=== PATIENT | female | born 1925 | race Caucasian/White ===

== ENCOUNTER 2016-05-29 15:22 | Inpatient (IN) | payer MEDICARE, OTHER ==
[~2016-05-29] VITALS: Ht 167.6 cm; Wt 65.3 kg
[~2016-05-29 15:22] MED LIST: ACET325T45 PO; CARV3.1260 PO; MAGN400O4 PO; OXYC5CAP17 PO; PANT40TA4 PO; RIVA15TA PO; SIME80TA PO; UDROBAC PO
[2016-05-29] MEDS ORDERED: ONDANSETRON 4 MG INJ IV STA (15:40)
[2016-05-29 16:02] LABS: HEMATOCRIT 33.4 % (37.0-47.0); HEMOGLOBIN 10.6 g/dl (12.0-16.0); MEAN CORPUSCULAR HEMOGLOBIN 20.9 pg (29.0-33.0); MEAN CORPUSCULAR HGB CONC 31.9 g/dl (32.0-37.0); MEAN CORPUSCULAR VOLUME 65.6 fl (82.0-101.0); MEAN PLATELET VOLUME 8.9 fl (7.4-10.4); PLATELET COUNT 347 10^3/UL (140-440); RED BLOOD COUNT 5.09 10^6/ul (4.20-5.40); RED CELL DISTRIBUTION WIDTH 18.9 % (11.5-14.5); UNCORRECTED WBC 11.4 10^3/ul (4.8-10.8); WHITE BLOOD COUNT 11.4 10^3/ul (4.8-10.8)
[2016-05-29 16:08] LABS: INR 1.17; PT RATIO 1.2
[2016-05-29 16:09] LABS: PARTIAL THROMBOPLASTIN TIME 30.7 Sec (25.0-35.0)
[2016-05-29 16:12] LABS: ALBUMIN 3.9 g/dl (3.3-4.9); CHLORIDE 91 mmol/L (97-110); SODIUM 124 mmol/L (135-144)
[2016-05-29 16:15] LABS: ALBUMIN/GLOBULIN RATIO 1.14; ALKALINE PHOSPHATASE 90 IU/L (42-121); ANION GAP 18 (8-16); ASPARTATE AMINO TRANSFERASE 26 IU/L (15-46); BILIRUBIN,INDIRECT 0.8 mg/dl (0-1.1); BILIRUBIN,TOTAL 0.8 mg/dl (0.2-1.3); BLOOD UREA NITROGEN 49 mg/dl (7-20); CARBON DIOXIDE 21 mmol/L (21-31); GLUCOSE 96 mg/dl (70-220); TOTAL PROTEIN 7.3 g/dl (6.1-8.1)
[2016-05-29 16:16] LABS: ALANINE AMINOTRANSFERASE 22 IU/L (13-69); CALCIUM 9.5 mg/dl (8.4-10.2)
--- NOTE | 2016-05-29 16:16 | RADRPT ---
PROCEDURE: XR Chest. CLINICAL INDICATION: Chest pain TECHNIQUE: Single frontal chest x-ray. COMPARISON: 04/03/2016 FINDINGS: There is cardiomegaly with central pulmonary congestion. There is mild prominence of the interstitia l markings. There are no pleural effusions or pneumothoraces. There is aortic atherosclerosis. The osseous structures are intact. IMPRESSION: 1. Cardiomegaly with mild pulmonary congestion. The appearance has improved compared to 04/03/2016 . 2. Aortic atherosclerosis. RPTAT: BB .Rob Funez MD, MD Date Time Electronically viewed and signed by .Rob Funez MD, on 05/29/2016 16:15 .O/
[2016-05-29 16:21] LABS: CONDITION 1; LH ANALYZER COMMENTS 1; SUSPECT 1
[2016-05-29 16:23] LABS: B-TYPE NATRIURETIC PEPTIDE 5860 PG/ML (0-450)
[2016-05-29 16:24] LABS: POTASSIUM 6.4 mmol/L (3.5-5.1)
[2016-05-29 16:25] LABS: ADD UMIC YES; URINE BILIRUBIN (Dip) NEGATIVE (NEGATIVE); URINE BLOOD (Dip) NEGATIVE (NEGATIVE); URINE COLOR LT. YELLOW (YELLOW); URINE GLUCOSE (Dip) NEGATIVE (NEGATIVE); URINE KETONES (Dip) NEGATIVE (NEGATIVE); URINE LEUKOCYTE ESTERASE (Dip) 2+ (NEGATIVE); URINE NITRITE (Dip) POSITIVE (NEGATIVE); URINE TOTAL PROTEIN (Dip) NEGATIVE (NEGATIVE); URINE UROBILINOGEN (Dip) 0.2 E.U./dL (0.1-1.0)
[2016-05-29 16:27] LABS: TROPONIN-I < 0.010 ng/ml (0.00-0.12)
[2016-05-29] MEDS ORDERED: DEXTROSE 50% 50 ML SYRINGE IV STA (16:27)
[2016-05-29] MEDS ORDERED: NA POLYST SULFON 15 GM/60 ML BTL PO ONE (16:30)
[2016-05-29] MEDS ORDERED: INSULIN REGULAR, HUMAN 100 UNIT/1 ML 3ML VIAL IV ONE (16:30)
[2016-05-29] MEDS ORDERED: NA BICARBONATE 8.4% 50 ML SYG IV ONE (16:30)
[2016-05-29] MEDS ORDERED: CALCIUM GLUCONATE 10% 1 GM in SOD CHLORIDE 0.9% 100 ML IVPB ONE (16:30)
[2016-05-29] MEDS ORDERED: CA GLUCONATE (GM) 10% 10ML INJ IV STA (16:34)
[2016-05-29 16:38] LABS: RENAL EPITHELIAL CELLS,URINE MODERATE; URINE RBCS NONE SEEN /HPF (0)
[2016-05-29 16:39] LABS: BACTERIA,URINE MANY
[2016-05-29] MEDS ORDERED: SOD CHLORIDE 0.9% 1,000 ML IV SCH (16:55)
--- NOTE | 2016-05-29 16:59 | ERA ---
ER Documentation Chief Complaint Date/Time DATE: 05/29/16 TIME: 16:57 Chief Complaint BIB RA FOR EVAL OF N/V X 3 DAYS. HPI This is an 89-year-old female who was brought in by ambulance from home for evaluation of nausea and vomiting. This patient does have a history of hypertension, atrial fibrillation, and she states that she has been vomiting and feeling generally weak over the past few days. The patient states that she is taking Lasix for CHF. The patient denies any palpitations or chest pain at this time. ROS All systems reviewed and are negative except as per history of present illness. Medications Home Meds Active Scripts Guaifenesin-Codeine Phosphate* (Robitussin* AC) 5 Ml Syrup, 10 ML PO Q4H Y for COUGH for 30 Days, BOT Prov:COLIN BIRD MD 04/07/16 Carvedilol* (Carvedilol*) 3.125 Mg Tablet, 3.125 MG PO BID for 30 Days, #60 TAB Prov:COLIN BIRD MD 04/07/16 Reported Medications Simethicone* (Anti-Gas/80*) 80 Mg Tab.chew, 40 MG PO Q6H Y for DISTENSION/GAS/ BLOATING, TAB.CHEW 04/03/16 Magnesium Hydroxide* (Milk Of Magnesia*) 400 Mg/5 Ml Oral.susp, 1200 ML PO, ML 04/03/16 Rivaroxaban* (Xarelto*) 15 Mg Tablet, 15 MG PO DAILY, TAB 04/03/16 Acetaminophen* (Acetaminophen*) 325 Mg Tablet, 650 MG PO Q4H Y for PAIN AND OR ELEVATED TEMP, #30 TAB 04/03/16 Oxycodone Hcl* (IR) (Oxycodone Hcl*) 5 Mg Capsule, 5 MG PO Q4H Y for PAIN, CAP 04/03/16 Pantoprazole* (Pantoprazole*) 40 Mg Tablet.dr, 40 MG PO BID, TAB 04/03/16 Allergies Allergies: Coded Allergies: No Known Allergy (Unverified , 04/05/16) PMhx/Soc History of Surgery: Yes Anesthesia Reaction: No Hx Neurological Disorder: No Hx Respiratory Disorders: No Hx Cardiac Disorders: Yes (CHF, HTN, A-fib) Hx Psychiatric Problems: No Hx Alcohol Use: No Hx Substance Use: No Hx Tobacco Use: No Smoking Status: Never smoker Physical Exam Vitals Vital Signs Date Time Temp Pulse Resp B/P Pulse Ox O2 Delivery O2 Flow Rate FiO2 05/29/16 16:01 86 17 154/74 97 Room Air 05/29/16 15:39 98.3 88 49 158/71 98 05/29/16 15:39 Nasal Cannula 2 Physical Exam INITIAL VITAL SIGNS: Reviewed by me GENERAL: The patient is well developed and appropriate for usual state of health in no apparent distress HEENT: Pupils equal, round, and reactive to light. EOMI. There is no scleral icterus. NECK: C-spine is soft and supple, there is no meningismus. There is no cervical lymphadenopathy. LUNGS: Rales in the bilateral lower lobes HEART: Irregularly irregular rhythm, no murmurs, clicks, rubs or gallops. ABDOMEN: Soft, non-tender, non-distended. There are bowel sounds in all four quadrants. No rebound or guarding. EXTREMITIES: There is no peripheral cyanosis or edema. No focal swelling or erythema. NEUROLOGICAL: The patient moves all four extremities with 5/5 strength. Cranial nerves II - XII are intact. Normal gait. Alert and oriented SKIN: There is no apparent rash or petechiae. HEME/LYMPHATIC: There is no evidence of excessive bruising or lymphedema. PSYCHIATRIC: The patient does not appear anxious or depressed. Result Diagram: 05/29/16 1550 05/29/16 1550 Results 24 hrs Laboratory Tests Test 05/29/16 15:50 05/29/16 16:15 Activated Partial Thromboplast Time 30.7Sec Alanine Aminotransferase (ALT/SGPT) 22IU/L Albumin 3.9g/dl Albumin/Globulin Ratio 1.14 Alkaline Phosphatase 90IU/L Anion Gap 18 Aspartate Amino Transf (AST/SGOT) 26IU/L B-Type Natriuretic Peptide 5860PG/ML Blood Morphology Comment Blood Urea Nitrogen 49mg/dl Calcium Level 9.5mg/dl Carbon Dioxide Level 21mmol/L Chloride Level 91mmol/L Creatinine 1.30mg/dl Direct Bilirubin 0.00mg/dl Globulin 3.40g/dl Glucose Level 96mg/dl Hematocrit 33.4% Hemoglobin 10.6g/dl INR International Normalized Ratio 1.17 Indirect Bilirubin 0.8mg/dl Mean Corpuscular Hemoglobin 20.9pg Mean Corpuscular Hemoglobin Concent 31.9g/dl Mean Corpuscular Volume 65.6fl Mean Platelet Volume 8.9fl Nucleated Red Blood Cells # 10^3/ul Nucleated Red Blood Cells % /100WBC Platelet Count 51784^3/UL Potassium Level 6.4mmol/L Prothrombin Time 15.0Sec Prothrombin Time Ratio 1.2 Red Blood Count 5.0910^6/ul Red Cell Distribution Width 18.9% Sodium Level 124mmol/L Total Bilirubin 0.8mg/dl Total Protein 7.3g/dl Troponin I < 0.010ng/ml White Blood Count 11.410^3/ul Urine Bacteria MANY Urine Bilirubin NEGATIVE Urine Clarity CLOUDY Urine Color LT. YELLOW Urine Glucose NEGATIVE% Urine Hemoglobin NEGATIVE Urine Ketones NEGATIVE Urine Leukocyte Esterase 2+ Urine Microscopic RBC NONE SEEN/HPF Urine Microscopic WBC >200/HPF Urine Nitrite POSITIVE Urine Renal Epithelial Cells MODERATE Urine Specific [place] 1.010 Urine Total Protein NEGATIVE Urine Urobilinogen 0.2 E.U./dL Urine pH 6.0 Current Medications Medications (Trade) Dose Ordered Sig/Charlene Route PRN Reason Start Time Stop Time Status Last Admin Dose Admin Ondansetron HCl 4 mg 4 mg ONCE STAT IV 05/29/16 15:40 05/29/16 15:41 DC Calcium Gluconate/ Sodium Chloride (Ca Gluc/NS) 110 ml @ 110 mls/hr ONCE ONCE IVPB 05/29/16 16:30 05/29/16 16:39 DC Insulin Human Regular (Humulin R) 10 unit ONCE ONCE IV 05/29/16 16:30 05/29/16 16:31 DC 05/29/16 16:47 Sodium Polystyrene Sulfonate (Kayexalate) 60 gm ONCE ONCE PO 05/29/16 16:30 05/29/16 16:31 DC 05/29/16 16:46 Sodium Bicarbonate (Na Bicarb 8.4% Syg) 50 ml ONCE ONCE IV 05/29/16 16:30 05/29/16 16:31 DC 05/29/16 16:46 Dextrose (D50w Syringe) 50 ml ONCE STAT IV 05/29/16 16:27 05/29/16 16:29 DC 05/29/16 16:46 Calcium Gluconate 1 gm 1 gm ONCE STAT IV 05/29/16 16:34 05/29/16 16:39 DC 05/29/16 16:46 Ceftriaxone Sodium 50 ml @ 100 mls/hr ONCE ONCE IVPB 05/29/16 17:00 05/29/16 17:29 05/29/16 16:54 Sodium Chloride (NS) 1,000 ml @ 80 mls/hr [id number] IV 05/29/16 16:55 05/30/16 05:24 Ondansetron HCl (Zofran Inj) 4 mg ER BRIDGE PRN IV NAUSEA AND/OR VOMITING 05/29/16 17:00 05/30/16 16:59 Acetaminophen (Tylenol Tab) 650 mg ER BRIDGE PRN PO MILD PAIN/FEVER 05/29/16 17:00 05/30/16 16:59 Procedures/MDM EKG: Rate/Rhythm: Atrial fibrillation QRS, ST, T-waves: [No changes consistent w/ acute ischemia] Impression: [No evidence of ischemia or arrhythmia] Chest X-ray 1V Interpreted by me: Soft Tissue: Pulmonary vascular congestion Bones: No acute abnormalities Mediastinum/Cardiac Silhouette/Lungs: [No acute abnormalities] This 89-year-old female presents to the ER for evaluation of nausea and vomiting. This patient did have lab work done which revealed a potassium of 6.4. This patient has no EKG changes or hypertension T waves on her EKG. The patient was given a cocktail of calcium gluconate, insulin, D50, Kayexalate, and sodium bicarbonate. She was also found to have an acute urinary tract infection. Urine culture was obtained, the patient was given Rocephin. This patient was subsequently found to have a sodium of 124. Her previous sodiums have been 135 and above. She has no altered mental status at this time and will be admitted for acute hyperkalemia, acute hyponatremia, acute cystitis, and generalized weakness. I have spoken to her panel physician, Dr. randall who accepts the patient at this time to the telemetry floor Departure Diagnosis: Primary Impression: Acute hyperkalemia Additional Impressions: Acute hyponatremia Acute cystitis Nausea and vomiting Microcytic anemia Renal insufficiency Condition: WESLEY Antonio DO May 29, 2016 16:58
[2016-05-29] MEDS ORDERED: ACETAMINOPHEN 325 MG TAB PO PRN (17:00)
[2016-05-29] MEDS ORDERED: CEFTRIAXONE 1 GM/50 ML (PMX) 50 ML IVPB ONE (17:00)
[2016-05-29] MEDS ORDERED: ONDANSETRON 4 MG INJ IV PRN ×2 (17:00→19:00)
[2016-05-29] MEDS ORDERED: METO-448 PO (17:03)
[2016-05-29] MEDS ORDERED: SPIR25TA76 PO (17:04)
[2016-05-29] MEDS ORDERED: METF-385 PO (17:04)
[2016-05-29] MEDS ORDERED: DIGO125T6 PO (17:05)
[2016-05-29] MEDS ORDERED: DILT120C79 PO (17:05)
[2016-05-29] MEDS ORDERED: POTA8CAP PO (17:05)
[2016-05-29] MEDS ORDERED: ERGO500014 PO (17:06)
[2016-05-29] MEDS ORDERED: FURO40TA4 PO (17:06)
[2016-05-29] MEDS ORDERED: APIX5TAB PO (17:06)
[2016-05-29] MEDS ORDERED: FAMO20TA18 PO (17:06)
[2016-05-29] MEDS ORDERED: ONDA4TAB8 PO (17:07)
[2016-05-29] MEDS ORDERED: GABA-526 PO (17:07)
[2016-05-29] MEDS ORDERED: BENA10TA48 PO (17:07)
[2016-05-29 17:45] LABS: LYMPHOCYTES # 2.5 10^3/ul (0.8-2.9); MONOCYTE # 0.5 10^3/ul (0.3-0.9); NEUTROPHIL # 8.1 10^3/ul (1.6-7.5)
[2016-05-29] MEDS ORDERED: GLUCOSE GEL 15 GRAM TUBE BUCCAL PRN (19:00)
[2016-05-29] MEDS ORDERED: ONDANSETRON 4 MG TAB PO PRN (19:00)
[2016-05-29] MEDS ORDERED: GLUCAGON 1 MG INJ IM PRN (19:00)
[2016-05-29] MEDS ORDERED: GLUCOSE GEL 15 GRAM TUBE PO PRN ×2 (19:00)
[2016-05-29] MEDS ORDERED: METOCLOPRAMIDE 10 MG INJ IV PRN (19:00)
[2016-05-29] MEDS ORDERED: DEXTROSE 50% 50 ML SYRINGE IV PRN ×2 (19:00)
[2016-05-29] MEDS ORDERED: ERGOCALCIFEROL 50,000 UNIT CAP PO SCH (19:00)
[2016-05-29] MEDS ORDERED: morphine 2 MG INJ IV PRN (19:00)
[2016-05-29] MEDS ORDERED: NACL 0.9% 3 ML SYG IV SCH (19:00)
[2016-05-29 20:40] VITALS: Ht 167.6 cm; Wt 65.3 kg
[2016-05-29] MEDS: INSULIN ASPART [NOVOLOG] 3 ML PEN SC SCH (21:00)
[2016-05-29] MEDS ORDERED: HEPARIN 5,000 UNIT/0.5 ML SYG SC SCH (21:00)
[2016-05-29] MEDS ORDERED: APIXABAN 5 MG TABLET PO SCH (21:00)
[2016-05-29 21:08] VITALS: BP 113/56; RESP 20
[2016-05-29] MEDS: ACETAMINOPHEN 325 MG TAB PO PRN (21:40)
[2016-05-29] MEDS: GABAPENTIN 300 MG CAP PO SCH (21:42)
[2016-05-29] MEDS: METOPROLOL 25 MG TAB PO SCH (21:42)
[2016-05-29] MEDS ORDERED: SODIUM BICARBONATE (IV ADD) 150 MEQ in DEXTROSE 5% 850 ML IV SCH (22:00)
[2016-05-29 22:15] LABS: CREATINE KINASE < 20 IU/L (23-200)
[2016-05-29 22:24] LABS: CK-MB 0.57 ng/ml (0.0-2.4)
[2016-05-29 22:28] LABS: TROPONIN-I < 0.010 ng/ml (0.00-0.12)
--- NOTE | 2016-05-29 22:36 | PREOPHP ---
DATE OF ADMISSION: 05/29/2016 REASON FOR CONSULTATION: Hyperkalemia and acute renal failure. Thank you, Dr. Moore, for asking me to participate in the medical management of this patient. HISTORY OF PRESENT ILLNESS: This 89-year-old female was brought into the emergency room around 4 p. m. from home because of nausea, vomiting, and chest pain. The patient does have a history of hypert ension and atrial fibrillation. She is awake and alert at this time. Her daughter is also with her . The patient apparently has been feeling weak for about 5 days. She has also had some nausea and vomiting. The patient has a history of congestive heart failure and is on diuretics. The patient w as also on potassium supplements and Aldactone. The patient has had some medical problems over the past several months. She did undergo a right total hip replacement on 03/12/2016 at [facility] by Dr. Willett. Apparently, she had some GI bleeding preoperatively and was found to have gastric ulcers. She had to be given a 4-unit blood transfusion. The patient has been on Eliquis f or chronic atrial fibrillation. The patient denies any prior history of kidney disease. The patien t had a serum creatinine of 0.98 on 04/11/2016, here at this hospital. The patient, after having he r hip replacement, went to a rehabilitation center. Then, she developed pneumonia and was admitted here in March, and then went to the rehab unit here in the hospital. The patient has been having increasing weakness, diffuse body pain and some chest pressure today, and was brought to the hospit al. CURRENT MEDICATIONS: Includes the followin. Eliquis 5 mg twice a day. 2. Benazepril 10 mg twice a day. 3. Digoxin 0.125 mg a day. 4. Diltiazem 120 mg daily. 5. Metoprolol 25 mg twice a day. 6. Aldactone 25 mg a day. 7. Gabapentin 600 mg at bedtime. 8. Furosemide 40 mg a day. 9. Potassium chloride 8 mEq twice a day. 10. Famotidine 20 mg a day. 11. Zofran 4 mg b.i.d. p.r.n. nausea. 12. Metformin 850 mg with breakfast and dinner. 13. Vitamin D 50,000 units a week. PAST MEDICAL HISTORY: Remarkable for diabetes mellitus, anemia, degenerative joint disease, pneumon ia, atrial fibrillation, congestive heart failure, coronary artery disease with cardiomyopathy, urin keith tract infection. ALLERGIES: SHE HAS NO KNOWN DRUG ALLERGIES. SOCIAL HISTORY: She does not smoke nor drink alcohol. SURGICAL HISTORY: She had her right hip replaced in mid February of last year. PHYSICAL EXAMINATION: GENERAL: At this time reveals a well-developed female, in no apparent distress. VITAL SIGNS: Temperature 97.7, pulse of 91, respirations 20, blood pressure 113/56, O2 sat 97% on r oom air. HEENT: Head normocephalic. EYES: Extraocular muscles intact. NOSE AND MOUTH: Normal. NECK: Supple. No neck vein distention. LUNGS: Diminished breath sounds bilaterally. Poor inspiratory effort. No rales or wheezes. HEART: Irregularly irregular rhythm. No murmurs, gallops, or rubs. ABDOMEN: Soft, nontender. No masses or megaly. EXTREMITIES: No peripheral edema. LABORATORY DATA: White blood count 11,400, hemoglobin 10.6, hematocrit 33.4. Chemistry: Sodium 12 4, potassium 6.4, chloride 91, CO2 21, BUN 49, creatinine 1.3, P-natriuretic peptide 5860. Urinalys is: 2+ leukocyte esterase, greater than 200 WBCs per high-power field, many bacteria. IMPRESSION: 1. Acute renal failure. This patient most likely has acute renal failure due to dehydration. She has had nausea and poor appetite for at least 5 days. She has been on diuretics. 2. Hyperkalemia due to #1 and to being on potassium supplements, Aldactone, and an IDALIA inhibitor. 3. Hyponatremia due to dehydration. 4. Atrial fibrillation, rate controlled. 5. History of congestive heart failure. 6. Anemia. PLAN: 1. Gentle rehydration. 2. The patient has been given appropriate medications to treat hyperkalemia. 3. Repeat potassium. 4. Check labs in the morning. 5. I will follow the patient along with you. Dictated By: NELSY ORTIZ MD, ND/STEVE Conf#: [id number] DID#: [id number]
[2016-05-29] MEDS ORDERED: VITAMIN A & D 5 GM OINT PACKET TOP ONE (22:42)
[2016-05-29 22:43] VITALS: BP 110/49; RESP 20
--- NOTE | 2016-05-29 22:57 | HP ---
Date/Time of Note Date/Time of Note DATE: 05/29/16 TIME: 22:57 Assessment/Plan VTE Prophylaxis VTE Prophylaxis Intervention: other (Eliquis) Lines/Catheters IV Catheter Type (from Nrs): Saline Lock Assessment/Plan Assessment/Plan IMPRESSION 1. DANNY 2. Hyperkalemia 3. Hx of Atrial fibrillation. 4. Hx of NTEMI 5. Hx of Gastric Ulcer and GI Bleeding 6. hx of Non-ST elevation myocardial infarction. PLAN Correct electrolytes, namely K+ IVF Appreciate renal consult Cont current medical mgmt, including cardiac meds and adjust as needed HPI/ROS Admit Date/Time Admit Date/Time May 29, 2016 at 20:39 Hx of Present Illness This is an 89-year-old female who was brought in by ambulance from home for evaluation of nausea and vomiting. This patient does have a history of hypertension, atrial fibrillation, and she states that she has been vomiting and feeling generally weak over the past few days. The patient states that she is taking Lasix for CHF. The patient denies any palpitations or chest pain at this time. PMH/Family/Social Social History Smoking Status: Never smoker Exam/Review of Systems Vital Signs Vitals Vital Signs Date Time Temp Pulse Resp B/P Pulse Ox O2 Delivery O2 Flow Rate FiO2 05/29/16 22:43 98.3 89 20 110/49 98 05/29/16 20:19 Room Air 05/29/16 15:39 2 Exam Exam General: No in acute distress. HEENT: Atraumatic, normocephalic. The pupils are equal and round . Neck: Supple with full range of motion. Chest: Normal expansion of the thorax during inspiration Lungs: Clear to auscultation bilaterally Heart: Normal S1-S2, Regular rhythm and rate. Abdomen: Soft , nontender, nondistended , bowel sounds are present. Extremities: Normal to inspection, no edema no cyanosis, surgical site is dry and clean Neurologic: Normal mental status,The patient is awake, alert and oriented . Labs Result Diagram: 05/29/16 1550 05/29/16 2145 Medications Medications Current Medications Ondansetron HCl (Zofran Inj) 4 mg Q6H PRN IV NAUSEA AND/OR VOMITING; Start 05/29 at 19:00 Metoclopramide HCl (Reglan) 10 mg Q6H PRN IV NAUSEA AND/OR VOMITING; Start 05/29 at 19:00 Acetaminophen (Tylenol Tab) 650 mg Q6H PRN PO PAIN LEVEL 1-3 OR FEVER Last administered on 05/29/16 21:40; Admin Dose 650 MG; Start 05/29/16 at 19:00 Morphine Sulfate (morphine) 2 mg Q4H PRN IV PAIN LEVEL 7-10; Start 05/29/16 at 19:00 Insulin Glargine (Lantus) 10 unit QAM SC ; Start 05/30/16 at 09:00 Diltiazem HCl (Cardizem Cd) 120 mg DAILY PO ; Start 05/30/16 at 09:00 Ergocalciferol (Drisdol) 50,000 unit Q7D PO Last administered on 05/29/16 21:41 ; Admin Dose 50,000 UNIT; Start 05/29/16 at 19:00 Famotidine (Pepcid) 20 mg DAILY PO ; Start 05/30/16 at 09:00 Gabapentin (Neurontin) 600 mg QHS PO Last administered on 05/29/16 21:42; Admin Dose 600 MG; Start 05/29/16 at 21:00 Metoprolol Tartrate (Lopressor) 25 mg BID PO Last administered on 05/29/16 21: 42; Admin Dose 25 MG; Start 05/29/16 at 21:00 Ondansetron HCl (Zofran Tab) 4 mg BID PRN PO NAUSEA AND/OR VOMITING; Start 05/29 at 19:00 Miscellaneous Information 1 ea NOTE XX ; Start 05/29/16 at 19:00 Glucose (Glutose) 15 gm Q15M PRN PO DECREASED GLUCOSE; Start 05/29/16 at 19:00 Glucose (Glutose) 22.5 gm Q15M PRN PO DECREASED GLUCOSE; Start 05/29/16 at 19:00 Dextrose (D50w Syringe) 25 ml Q15M PRN IV DECREASED GLUCOSE; Start 05/29/16 at 19:00 Dextrose (D50w Syringe) 50 ml Q15M PRN IV DECREASED GLUCOSE; Start 05/29/16 at 19:00 Glucagon (Glucagen) 1 mg Q15M PRN IM DECREASED GLUCOSE; Start 05/29/16 at 19:00 Glucose (Glutose) 15 gm Q15M PRN BUCCAL DECREASED GLUCOSE; Start 05/29/16 at 19: 00 Apixaban 2.5 mg 2.5 mg BID PO ; Start 05/30/16 at 09:00 Sodium Bicarbonate/ Dextrose (Na Bicarb/D5W) 1,000 ml @ 80 mls/hr [id number] IV Last administered on 05/29/16t 22:46; Admin Dose 80 MLS/HR; Start 05/29/16 at 22: 00 Ceftriaxone Sodium (Rocephin) 1 gm DAILY IM ; Start 05/30/16 at 09:00 YASH DEJESUS MD May 29, 2016 22:57
[2016-05-30] VITALS (10 sets, daily range): BP systolic 93–131; BP diastolic 45–61; PULSE 66–88; RESP 18–19
[2016-05-30 03:43] LABS: HEMATOCRIT 32.4 % (37.0-47.0); HEMOGLOBIN 10.4 g/dl (12.0-16.0); MEAN CORPUSCULAR HEMOGLOBIN 20.8 pg (29.0-33.0); MEAN CORPUSCULAR VOLUME 65.1 fl (82.0-101.0); MEAN PLATELET VOLUME 8.9 fl (7.4-10.4); PLATELET COUNT 315 10^3/UL (140-440); RED BLOOD COUNT 4.99 10^6/ul (4.20-5.40); RED CELL DISTRIBUTION WIDTH 19.3 % (11.5-14.5); UNCORRECTED WBC 10.9 10^3/ul (4.8-10.8); WHITE BLOOD COUNT 10.9 10^3/ul (4.8-10.8)
[2016-05-30 03:51] LABS: ALBUMIN 3.6 g/dl (3.3-4.9); POTASSIUM 4.2 mmol/L (3.5-5.1)
[2016-05-30 03:53] LABS: CREATININE 1.39 mg/dl (0.44-1.00)
[2016-05-30 03:54] LABS: ALBUMIN/GLOBULIN RATIO 1.16; TOTAL PROTEIN 6.7 g/dl (6.1-8.1)
[2016-05-30 03:55] LABS: CALCIUM 9.6 mg/dl (8.4-10.2)
[2016-05-30 04:02] LABS: CREATINE KINASE < 20 IU/L (23-200)
[2016-05-30 04:03] LABS: CK-MB 0.42 ng/ml (0.0-2.4)
[2016-05-30 04:16] LABS: TROPONIN-I < 0.010 ng/ml (0.00-0.12)
[2016-05-30 05:41] LABS: CONDITION 1
[2016-05-30 05:42] LABS: LH ANALYZER COMMENTS 1
[2016-05-30] MEDS: INSULIN ASPART [NOVOLOG] 3 ML PEN SC SCH ×4 (07:55→20:22)
[2016-05-30] MEDS: FAMOTIDINE 20 MG TAB PO SCH (08:43)
[2016-05-30] MEDS: APIXABAN 5 MG TABLET PO SCH ×2 (08:43→20:19)
[2016-05-30] MEDS: CLOTRIMAZOLE 10 MG TROCHE MT SCH ×5 (08:43→20:19)
[2016-05-30] MEDS: DILTIAZEM (CD) 120 MG CAP PO SCH (08:44)
[2016-05-30] MEDS: CEFTRIAXONE 1 GM INJ IM SCH (08:45)
[2016-05-30] MEDS: INSULIN GLARGINE [LANtus] 3 ML PEN SC SCH (08:48)
[2016-05-30] MEDS: METOPROLOL 25 MG TAB PO SCH ×2 (08:49→20:19)
[2016-05-30 09:41] LABS: EOSINOPHILS # 0.1 10^3/ul (0.0-0.5); LYMPHOCYTES # 3.3 10^3/ul (0.8-2.9); MONOCYTE # 0.5 10^3/ul (0.3-0.9); MYELOCYTES # 0.1; NEUTROPHIL # 6.9 10^3/ul (1.6-7.5)
--- NOTE | 2016-05-30 09:45 | CONS ---
Date/Time of Note Date/Time of Note DATE: 05/30/16 TIME: 09:38 Assessment/Plan Assessment/Plan Chief Complaint/Hosp Course 1. acute renal failure , renal function is the same as yesterday . Baseline s creatinine is 0.98 2.hyperkalemia , resolved , will D/C bicarb drip 3. CHF , seems asymptomatic , will hold off giving more IV fluid . 4. labs in am . 5. anemia , w/u in progress , she has a h/o GI bleeding in February from gastric ulcers after hip fracture . Problems: Consultation Date/Type/Reason Admit Date/Time May 29, 2016 at 20:39 Initial Consult Date Type of Consultation: renal 24 HR Interval Summary Free Text/Dictation She is feeling better today . She is eating today . Constitutional: improved, no complaints Exam/Review of Systems Vital Signs Vitals Vital Signs Date Time Temp Pulse Resp B/P Pulse Ox O2 Delivery O2 Flow Rate FiO2 05/30/16 08:39 83 05/30/16 07:45 97.8 18 97/51 98 05/29/16 20:19 Room Air 05/29/16 15:39 2 Intake and Output 05/29/16 05/29/16 05/30/16 15:00 23:00 07:00 Intake Total 780 ml Balance 780 ml Exam Constitutional: alert, oriented, well developed Psych: nl mood/affect, no complaints Respiratory: clear to auscultation, normal air movement Cardiovascular: regular rate and rhythm Gastrointestinal: nl liver, spleen, non-tender, soft Musculoskeletal: nl extremities to inspection Results Result Diagram: 05/30/16 0337 05/30/16 0337 Results 24 hrs Laboratory Tests Test 05/29/16 15:50 05/29/16 16:15 05/29/16 21:45 05/29/16 21:54 Activated Partial Thromboplast Time 30.7 Alanine Aminotransferase (ALT/SGPT) 22 Albumin 3.9 Albumin/Globulin Ratio 1.14 Alkaline Phosphatase 90 Anion Gap 18 H Aspartate Amino Transf (AST/SGOT) 26 B-Type Natriuretic Peptide 5860 H Band Neutrophils % 3.0 Blood Morphology Comment Blood Urea Nitrogen 49 H Calcium Level 9.5 Carbon Dioxide Level 21 Chloride Level 91 L Creatinine 1.30 H Direct Bilirubin 0.00 Globulin 3.40 H Glucose Level 96 Hematocrit 33.4 #L Hemoglobin 10.6 #L INR International Normalized Ratio 1.17 Indirect Bilirubin 0.8 Lymphocytes # 2.5 Lymphocytes % 22.0 Mean Corpuscular Hemoglobin 20.9 L Mean Corpuscular Hemoglobin Concent 31.9 L Mean Corpuscular Volume 65.6 L Mean Platelet Volume 8.9 Monocytes # 0.5 Monocytes % 4.0 Neutrophils # 8.1 H Neutrophils % 71.0 Nucleated Red Blood Cells # Nucleated Red Blood Cells % Platelet Count 347 # Potassium Level 6.4 *H 4.8 Prothrombin Time 15.0 H Prothrombin Time Ratio 1.2 Red Blood Count 5.09 # Red Cell Distribution Width 18.9 #H Sodium Level 124 L Total Bilirubin 0.8 Total Protein 7.3 Troponin I < 0.010 < 0.010 White Blood Count 11.4 #H Urine Bacteria MANY Urine Bilirubin NEGATIVE Urine Clarity CLOUDY Urine Color LT. YELLOW Urine Glucose NEGATIVE Urine Hemoglobin NEGATIVE Urine Ketones NEGATIVE Urine Leukocyte Esterase 2+ H Urine Microscopic RBC NONE SEEN Urine Microscopic WBC >200 Urine Nitrite POSITIVE H Urine Renal Epithelial Cells MODERATE Urine Specific [place] 1.010 Urine Total Protein NEGATIVE Urine Urobilinogen 0.2 E.U./dL Urine pH 6.0 Creatine Kinase < 20 L Creatine Kinase Index Creatinine Kinase MB (Mass) 0.57 Digoxin Level 0.8 L Bedside Glucose 93 Test 05/30/16 03:37 05/30/16 07:46 Alanine Aminotransferase (ALT/SGPT) 31 Albumin 3.6 Albumin/Globulin Ratio 1.16 Alkaline Phosphatase 78 Anion Gap 16 Aspartate Amino Transf (AST/SGOT) 24 Blood Morphology Comment Blood Urea Nitrogen 50 H Calcium Level 9.6 Carbon Dioxide Level 27 Chloride Level 97 Creatine Kinase < 20 L Creatine Kinase Index Creatinine 1.39 H Creatinine Kinase MB (Mass) 0.42 Direct Bilirubin 0.00 Globulin 3.10 Glucose Level 102 Hematocrit 32.4 L Hemoglobin 10.4 L Indirect Bilirubin 1.0 Mean Corpuscular Hemoglobin 20.8 L Mean Corpuscular Hemoglobin Concent 32.0 Mean Corpuscular Volume 65.1 L Mean Platelet Volume 8.9 Nucleated Red Blood Cells # Platelet Count 315 Potassium Level 4.2 Red Blood Count 4.99 Red Cell Distribution Width 19.3 H Sodium Level 136 Total Bilirubin 1.0 Total Protein 6.7 Troponin I < 0.010 White Blood Count 10.9 H Bedside Glucose 122 Medications Medications Current Medications Ondansetron HCl (Zofran Inj) 4 mg Q6H PRN IV NAUSEA AND/OR VOMITING; Start 05/29 at 19:00 Metoclopramide HCl (Reglan) 10 mg Q6H PRN IV NAUSEA AND/OR VOMITING; Start 05/29 at 19:00 Acetaminophen (Tylenol Tab) 650 mg Q6H PRN PO PAIN LEVEL 1-3 OR FEVER Last administered on 05/29/16 21:40; Admin Dose 650 MG; Start 05/29/16 at 19:00 Morphine Sulfate (morphine) 2 mg Q4H PRN IV PAIN LEVEL 7-10; Start 05/29/16 at 19:00 Insulin Glargine (Lantus) 10 unit QAM SC Last administered on 05/30/16 08:48; Admin Dose 10 UNIT; Start 05/30/16 at 09:00 Diltiazem HCl (Cardizem Cd) 120 mg DAILY PO Last administered on 05/30/16 08:44 ; Admin Dose 120 MG; Start 05/30/16 at 09:00 Ergocalciferol (Drisdol) 50,000 unit Q7D PO Last administered on 05/29/16 21:41 ; Admin Dose 50,000 UNIT; Start 05/29/16 at 19:00 Famotidine (Pepcid) 20 mg DAILY PO Last administered on 05/30/16 08:43; Admin Dose 20 MG; Start 05/30/16 at 09:00 Gabapentin (Neurontin) 600 mg QHS PO Last administered on 05/29/16 21:42; Admin Dose 600 MG; Start 05/29/16 at 21:00 Metoprolol Tartrate (Lopressor) 25 mg BID PO Last administered on 05/30/16 08: 49; Admin Dose 25 MG; Start 05/29/16 at 21:00 Ondansetron HCl (Zofran Tab) 4 mg BID PRN PO NAUSEA AND/OR VOMITING; Start 05/29 at 19:00 Miscellaneous Information 1 ea NOTE XX ; Start 05/29/16 at 19:00 Glucose (Glutose) 15 gm Q15M PRN PO DECREASED GLUCOSE; Start 05/29/16 at 19:00 Glucose (Glutose) 22.5 gm Q15M PRN PO DECREASED GLUCOSE; Start 05/29/16 at 19:00 Dextrose (D50w Syringe) 25 ml Q15M PRN IV DECREASED GLUCOSE; Start 05/29/16 at 19:00 Dextrose (D50w Syringe) 50 ml Q15M PRN IV DECREASED GLUCOSE; Start 05/29/16 at 19:00 Glucagon (Glucagen) 1 mg Q15M PRN IM DECREASED GLUCOSE; Start 05/29/16 at 19:00 Glucose (Glutose) 15 gm Q15M PRN BUCCAL DECREASED GLUCOSE; Start 05/29/16 at 19: 00 Apixaban 2.5 mg 2.5 mg BID PO Last administered on 05/30/16 08:43; Admin Dose 2.5 MG; Start 05/30/16 at 09:00 Sodium Bicarbonate/ Dextrose (Na Bicarb/D5W) 1,000 ml @ 80 mls/hr [id number] IV Last administered on 05/29/16 22:46; Admin Dose 80 MLS/HR; Start 05/29/16 at 22: 00 Ceftriaxone Sodium (Rocephin) 1 gm DAILY IM Last administered on 05/30/16 08:45 ; Admin Dose 1 GM; Start 05/30/16 at 09:00 Influenza Virus Vaccine (Fluzone) 0.5 ml ONCE ONCE IM* ; Start 06/01/16 at 09:00 ; Stop 06/01/16 at 09:01 NELSY ORTIZ MD May 30, 2016 09:45
--- NOTE | 2016-05-30 09:49 | CONS ---
Date/Time of Note Date/Time of Note DATE: 05/30/16 TIME: 09:48 Consultation Date/Type/Reason Admit Date/Time May 29, 2016 at 20:39 Constitutional: improved, no complaints Psychological: nl mood/affect, no complaints Social History Smoking Status: Never smoker Exam/Review of Systems Vital Signs Vitals Vital Signs Date Time Temp Pulse Resp B/P Pulse Ox O2 Delivery O2 Flow Rate FiO2 05/30/16 08:39 83 05/30/16 07:45 97.8 18 97/51 98 05/29/16 20:19 Room Air 05/29/16 15:39 2 Intake and Output 05/29/16 05/29/16 05/30/16 15:00 23:00 07:00 Intake Total 780 ml Balance 780 ml Results Result Diagram: 05/30/16 0337 05/30/16 0337 Results 24 hrs Laboratory Tests Test 05/29/16 15:50 05/29/16 16:15 05/29/16 21:45 05/29/16 21:54 Activated Partial Thromboplast Time 30.7 Alanine Aminotransferase (ALT/SGPT) 22 Albumin 3.9 Albumin/Globulin Ratio 1.14 Alkaline Phosphatase 90 Anion Gap 18 H Aspartate Amino Transf (AST/SGOT) 26 B-Type Natriuretic Peptide 5860 H Band Neutrophils % 3.0 Blood Morphology Comment Blood Urea Nitrogen 49 H Calcium Level 9.5 Carbon Dioxide Level 21 Chloride Level 91 L Creatinine 1.30 H Direct Bilirubin 0.00 Globulin 3.40 H Glucose Level 96 Hematocrit 33.4 #L Hemoglobin 10.6 #L INR International Normalized Ratio 1.17 Indirect Bilirubin 0.8 Lymphocytes # 2.5 Lymphocytes % 22.0 Mean Corpuscular Hemoglobin 20.9 L Mean Corpuscular Hemoglobin Concent 31.9 L Mean Corpuscular Volume 65.6 L Mean Platelet Volume 8.9 Monocytes # 0.5 Monocytes % 4.0 Neutrophils # 8.1 H Neutrophils % 71.0 Nucleated Red Blood Cells # Nucleated Red Blood Cells % Platelet Count 347 # Potassium Level 6.4 *H 4.8 Prothrombin Time 15.0 H Prothrombin Time Ratio 1.2 Red Blood Count 5.09 # Red Cell Distribution Width 18.9 #H Sodium Level 124 L Total Bilirubin 0.8 Total Protein 7.3 Troponin I < 0.010 < 0.010 White Blood Count 11.4 #H Urine Bacteria MANY Urine Bilirubin NEGATIVE Urine Clarity CLOUDY Urine Color LT. YELLOW Urine Glucose NEGATIVE Urine Hemoglobin NEGATIVE Urine Ketones NEGATIVE Urine Leukocyte Esterase 2+ H Urine Microscopic RBC NONE SEEN Urine Microscopic WBC >200 Urine Nitrite POSITIVE H Urine Renal Epithelial Cells MODERATE Urine Specific [place] 1.010 Urine Total Protein NEGATIVE Urine Urobilinogen 0.2 E.U./dL Urine pH 6.0 Creatine Kinase < 20 L Creatine Kinase Index Creatinine Kinase MB (Mass) 0.57 Digoxin Level 0.8 L Bedside Glucose 93 Test 05/30/16 03:37 05/30/16 07:46 Alanine Aminotransferase (ALT/SGPT) 31 Albumin 3.6 Albumin/Globulin Ratio 1.16 Alkaline Phosphatase 78 Anion Gap 16 Aspartate Amino Transf (AST/SGOT) 24 Blood Morphology Comment Blood Urea Nitrogen 50 H Calcium Level 9.6 Carbon Dioxide Level 27 Chloride Level 97 Creatine Kinase < 20 L Creatine Kinase Index Creatinine 1.39 H Creatinine Kinase MB (Mass) 0.42 Direct Bilirubin 0.00 Eosinophils # 0.1 Eosinophils % 1.0 Globulin 3.10 Glucose Level 102 Hematocrit 32.4 L Hemoglobin 10.4 L Indirect Bilirubin 1.0 Lymphocytes # 3.3 H Lymphocytes % 30.0 Mean Corpuscular Hemoglobin 20.8 L Mean Corpuscular Hemoglobin Concent 32.0 Mean Corpuscular Volume 65.1 L Mean Platelet Volume 8.9 Monocytes # 0.5 Monocytes % 5.0 Myelocytes # 0.1 Myelocytes % 1.0 H Neutrophils # 6.9 Neutrophils % 63.0 Nucleated Red Blood Cells # Platelet Count 315 Potassium Level 4.2 Red Blood Count 4.99 Red Cell Distribution Width 19.3 H Sodium Level 136 Total Bilirubin 1.0 Total Protein 6.7 Troponin I < 0.010 White Blood Count 10.9 H Bedside Glucose 122 Medications Medications Current Medications Ondansetron HCl (Zofran Inj) 4 mg Q6H PRN IV NAUSEA AND/OR VOMITING; Start 05/29 at 19:00 Metoclopramide HCl (Reglan) 10 mg Q6H PRN IV NAUSEA AND/OR VOMITING; Start 05/29 at 19:00 Acetaminophen (Tylenol Tab) 650 mg Q6H PRN PO PAIN LEVEL 1-3 OR FEVER Last administered on 05/29/16t 21:40; Admin Dose 650 MG; Start 05/29/16 at 19:00 Morphine Sulfate (morphine) 2 mg Q4H PRN IV PAIN LEVEL 7-10; Start 05/29/16 at 19:00 Insulin Glargine (Lantus) 10 unit QAM SC Last administered on 05/30/16 08:48; Admin Dose 10 UNIT; Start 05/30/16 at 09:00 Diltiazem HCl (Cardizem Cd) 120 mg DAILY PO Last administered on 05/30/16 08:44 ; Admin Dose 120 MG; Start 05/30/16 at 09:00 Ergocalciferol (Drisdol) 50,000 unit Q7D PO Last administered on 05/29/16 21:41 ; Admin Dose 50,000 UNIT; Start 05/29/16 at 19:00 Famotidine (Pepcid) 20 mg DAILY PO Last administered on 05/30/16 08:43; Admin Dose 20 MG; Start 05/30/16 at 09:00 Gabapentin (Neurontin) 600 mg QHS PO Last administered on 05/29/16 21:42; Admin Dose 600 MG; Start 05/29/16 at 21:00 Metoprolol Tartrate (Lopressor) 25 mg BID PO Last administered on 05/30/16 08: 49; Admin Dose 25 MG; Start 05/29/16 at 21:00 Ondansetron HCl (Zofran Tab) 4 mg BID PRN PO NAUSEA AND/OR VOMITING; Start 05/29 at 19:00 Miscellaneous Information 1 ea NOTE XX ; Start 05/29/16 at 19:00 Glucose (Glutose) 15 gm Q15M PRN PO DECREASED GLUCOSE; Start 05/29/16 at 19:00 Glucose (Glutose) 22.5 gm Q15M PRN PO DECREASED GLUCOSE; Start 05/29/16 at 19:00 Dextrose (D50w Syringe) 25 ml Q15M PRN IV DECREASED GLUCOSE; Start 05/29/16 at 19:00 Dextrose (D50w Syringe) 50 ml Q15M PRN IV DECREASED GLUCOSE; Start 05/29/16 at 19:00 Glucagon (Glucagen) 1 mg Q15M PRN IM DECREASED GLUCOSE; Start 05/29/16 at 19:00 Glucose (Glutose) 15 gm Q15M PRN BUCCAL DECREASED GLUCOSE; Start 05/29/16 at 19: 00 Apixaban (Eliquis) 2.5 mg BID PO Last administered on 05/30/16 08:43; Admin Dose 2.5 MG; Start 05/30/16 at 09:00 Ceftriaxone Sodium (Rocephin) 1 gm DAILY IM Last administered on 05/30/16 08:45 ; Admin Dose 1 GM; Start 05/30/16 at 09:00 Influenza Virus Vaccine (Fluzone) 0.5 ml ONCE ONCE IM* ; Start 06/01/16 at 09:00 ; Stop 06/01/16 at 09:01 LUDIN LAY MD May 30, 2016 09:49
[2016-05-30 11:07] LABS: IRON 86 ug/dl (35-150)
[2016-05-30 11:08] LABS: MAGNESIUM 1.9 mg/dl (1.7-2.5)
[2016-05-30 11:16] LABS: TOTAL IRON BINDING CAPACITY 212 ug/dl (241-421)
[2016-05-30] MEDS ORDERED: DIGOXIN 0.125 MG TAB PO SCH (13:00)
[2016-05-30 13:51] LABS: THYROID STIMULATING HORMONE 1.14 MIU/L (0.465-4.680)
[2016-05-30] MEDS: ACETAMINOPHEN 325 MG TAB PO PRN (14:28)
[2016-05-30 15:06] LABS: CARCINOEMBRYONIC ANTIGEN 2.8 ng/ml (0.0-5.0)
[2016-05-30 15:39] LABS: FOLATE 7.2 ng/ml (2.8-20.0)
[2016-05-30 16:32] LABS: CANCER ANTIGEN 125 6.7 U/ml (0.0-35.0)
[2016-05-30] MEDS: GABAPENTIN 300 MG CAP PO SCH (20:20)
--- NOTE | 2016-05-30 23:58 | PN ---
Date/Time of Note Date/Time of Note DATE: 05/30/16 TIME: 23:56 Assessment/Plan VTE Prophylaxis VTE Prophylaxis Intervention: other (eliquis) Lines/Catheters IV Catheter Type (from Nrs): Peripheral IV Urinary Cath still in place: No Assessment/Plan Assessment/Plan IMPRESSION 1. DANNY 2. Hyperkalemia: resolved 3. Hx of Atrial fibrillation. 4. Hx of NTEMI 5. Hx of Gastric Ulcer and GI Bleeding 6. hx of Non-ST elevation myocardial infarction. 7. N/V PLAN Correct electrolytes as needed IVF Appreciate Nephrology input Cont current medical mgmt, including PRN anti-emetics, cardiac meds and adjust as needed Exam/Review of Systems Vital Signs Vitals Vital Signs Date Time Temp Pulse Resp B/P Pulse Ox O2 Delivery O2 Flow Rate FiO2 05/30/16 20:23 87 05/30/16 20:15 98.2 18 131/61 97 05/29/16 20:19 Room Air 05/29/16 15:39 2 Intake and Output 05/29/16 05/29/16 05/30/16 15:00 23:00 07:00 Intake Total 780 ml Balance 780 ml Results Result Diagram: 05/30/16 0337 05/30/16 0337 Results 24 hrs Laboratory Tests Test 05/30/16 03:37 05/30/16 07:46 05/30/16 10:40 05/30/16 11:21 Alanine Aminotransferase (ALT/SGPT) 31 Albumin 3.6 Albumin/Globulin Ratio 1.16 Alkaline Phosphatase 78 Anion Gap 16 Aspartate Amino Transf (AST/SGOT) 24 Blood Morphology Comment Blood Urea Nitrogen 50 H Calcium Level 9.6 Carbon Dioxide Level 27 Chloride Level 97 Creatine Kinase < 20 L Creatine Kinase Index Creatinine 1.39 H Creatinine Kinase MB (Mass) 0.42 Direct Bilirubin 0.00 Eosinophils # 0.1 Eosinophils % 1.0 Globulin 3.10 Glucose Level 102 Hematocrit 32.4 L Hemoglobin 10.4 L Indirect Bilirubin 1.0 Lymphocytes # 3.3 H Lymphocytes % 30.0 Mean Corpuscular Hemoglobin 20.8 L Mean Corpuscular Hemoglobin Concent 32.0 Mean Corpuscular Volume 65.1 L Mean Platelet Volume 8.9 Monocytes # 0.5 Monocytes % 5.0 Myelocytes # 0.1 Myelocytes % 1.0 H Neutrophils # 6.9 Neutrophils % 63.0 Nucleated Red Blood Cells # Platelet Count 315 Potassium Level 4.2 Red Blood Count 4.99 Red Cell Distribution Width 19.3 H Sodium Level 136 Total Bilirubin 1.0 Total Protein 6.7 Troponin I < 0.010 White Blood Count 10.9 H Bedside Glucose 122 220 CA 125 Antigen 6.7 Carcinoembryonic Antigen 2.8 Erythrocyte Sedimentation Rate 18 Ferritin 410.0 H Folate 7.2 Iron Level 86 Lactate Dehydrogenase 289 L Magnesium Level 1.9 Percent Iron Saturation 41 Thyroid Stimulating Hormone (TSH) 1.140 Total Iron Binding Capacity 212 L Vitamin B12 Level 494 Test 05/30/16 17:40 05/30/16 20:21 Bedside Glucose 185 159 Medications Medications Current Medications Ondansetron HCl (Zofran Inj) 4 mg Q6H PRN IV NAUSEA AND/OR VOMITING; Start 05/29 at 19:00 Metoclopramide HCl (Reglan) 10 mg Q6H PRN IV NAUSEA AND/OR VOMITING; Start 05/29 at 19:00 Acetaminophen (Tylenol Tab) 650 mg Q6H PRN PO PAIN LEVEL 1-3 OR FEVER Last administered on 05/30/16 14:28; Admin Dose 650 MG; Start 05/29/16 at 19:00 Morphine Sulfate (morphine) 2 mg Q4H PRN IV PAIN LEVEL 7-10; Start 05/29/16 at 19:00 Insulin Glargine (Lantus) 10 unit QAM SC Last administered on 05/30/16 08:48; Admin Dose 10 UNIT; Start 05/30/16 at 09:00 Diltiazem HCl (Cardizem Cd) 120 mg DAILY PO Last administered on 05/30/16 08:44 ; Admin Dose 120 MG; Start 05/30/16 at 09:00 Ergocalciferol (Drisdol) 50,000 unit Q7D PO Last administered on 05/29/16 21:41 ; Admin Dose 50,000 UNIT; Start 05/29/16 at 19:00 Famotidine (Pepcid) 20 mg DAILY PO Last administered on 05/30/16 08:43; Admin Dose 20 MG; Start 05/30/16 at 09:00 Gabapentin (Neurontin) 600 mg QHS PO Last administered on 05/30/16 20:20; Admin Dose 600 MG; Start 05/29/16 at 21:00 Metoprolol Tartrate (Lopressor) 25 mg BID PO Last administered on 05/30/16 20: 19; Admin Dose 25 MG; Start 05/29/16 at 21:00 Ondansetron HCl (Zofran Tab) 4 mg BID PRN PO NAUSEA AND/OR VOMITING; Start 05/29 at 19:00 Miscellaneous Information 1 ea NOTE XX ; Start 05/29/16 at 19:00 Glucose (Glutose) 15 gm Q15M PRN PO DECREASED GLUCOSE; Start 05/29/16 at 19:00 Glucose (Glutose) 22.5 gm Q15M PRN PO DECREASED GLUCOSE; Start 05/29/16 at 19:00 Dextrose (D50w Syringe) 25 ml Q15M PRN IV DECREASED GLUCOSE; Start 05/29/16 at 19:00 Dextrose (D50w Syringe) 50 ml Q15M PRN IV DECREASED GLUCOSE; Start 05/29/16 at 19:00 Glucagon (Glucagen) 1 mg Q15M PRN IM DECREASED GLUCOSE; Start 05/29/16 at 19:00 Glucose (Glutose) 15 gm Q15M PRN BUCCAL DECREASED GLUCOSE; Start 05/29/16 at 19: 00 Apixaban (Eliquis) 2.5 mg BID PO Last administered on 05/30/16 20:19; Admin Dose 2.5 MG; Start 05/30/16 at 09:00 Ceftriaxone Sodium (Rocephin) 1 gm DAILY IM Last administered on 05/30/16 08:45 ; Admin Dose 1 GM; Start 05/30/16 at 09:00 Influenza Virus Vaccine (Fluzone) 0.5 ml ONCE ONCE IM* ; Start 06/01/16 at 09:00 ; Stop 06/01/16 at 09:01 YASH DEJESUS MD May 30, 2016 23:57
[2016-05-31] VITALS (10 sets, daily range): BP systolic 110–123; BP diastolic 53–59; PULSE 63–75; RESP 18–20
[2016-05-31 06:18] LABS: HEMATOCRIT 33.1 % (37.0-47.0); HEMOGLOBIN 10.8 g/dl (12.0-16.0); MEAN CORPUSCULAR HEMOGLOBIN 21.2 pg (29.0-33.0); MEAN CORPUSCULAR HGB CONC 32.5 g/dl (32.0-37.0); MEAN CORPUSCULAR VOLUME 65.2 fl (82.0-101.0); MEAN PLATELET VOLUME 9.2 fl (7.4-10.4); PLATELET COUNT 250 10^3/UL (140-440); RED BLOOD COUNT 5.08 10^6/ul (4.20-5.40); RED CELL DISTRIBUTION WIDTH 18.2 % (11.5-14.5); UNCORRECTED WBC 10.9 10^3/ul (4.8-10.8); WHITE BLOOD COUNT 10.9 10^3/ul (4.8-10.8)
[2016-05-31 06:36] LABS: CONDITION 1; LH ANALYZER COMMENTS 1
[2016-05-31 06:57] LABS: ALBUMIN 3.5 g/dl (3.3-4.9)
[2016-05-31 06:58] LABS: POTASSIUM 3.9 mmol/L (3.5-5.1)
[2016-05-31 07:00] LABS: ALBUMIN/GLOBULIN RATIO 1.06; BILIRUBIN,INDIRECT 0.8 mg/dl (0-1.1); BILIRUBIN,TOTAL 0.8 mg/dl (0.2-1.3); CREATININE 1.41 mg/dl (0.44-1.00); TOTAL PROTEIN 6.8 g/dl (6.1-8.1)
[2016-05-31 07:01] LABS: CALCIUM 9.3 mg/dl (8.4-10.2)
[2016-05-31] MEDS: INSULIN ASPART [NOVOLOG] 3 ML PEN SC SCH ×2 (07:55→11:56)
[2016-05-31] MEDS: ACETAMINOPHEN 325 MG TAB PO PRN ×2 (08:47→15:58)
[2016-05-31] MEDS: CLOTRIMAZOLE 10 MG TROCHE MT SCH ×3 (08:47→15:58)
[2016-05-31] MEDS: APIXABAN 5 MG TABLET PO SCH (08:48)
[2016-05-31] MEDS: METOPROLOL 25 MG TAB PO SCH (08:48)
[2016-05-31] MEDS: FAMOTIDINE 20 MG TAB PO SCH (08:48)
[2016-05-31] MEDS: DILTIAZEM (CD) 120 MG CAP PO SCH (08:49)
[2016-05-31] MEDS: CEFTRIAXONE 1 GM INJ IM SCH ×2 (09:00→12:12)
[2016-05-31] MEDS: INSULIN GLARGINE [LANtus] 3 ML PEN SC SCH (09:01)
--- NOTE | 2016-05-31 10:02 | CONS ---
Date/Time of Note Date/Time of Note DATE: 05/31/16 TIME: 09:58 Assessment/Plan Assessment/Plan Additional Assessment/Plan hyperkalemia improved Gram negative urinary infection Renal function improved and k normalized. Will see prn and probable discharge on oral anibiotics. Consultation Date/Type/Reason Admit Date/Time May 29, 2016 at 20:39 Initial Consult Date Type of Consultation: Renal Reason for Consultation Hyperkalemia 24 HR Interval Summary Free Text/Dictation Feels back to normal. Eating, Walking. No aches and no sob per son in room translating. Exam/Review of Systems Vital Signs Vitals Vital Signs Date Time Temp Pulse Resp B/P Pulse Ox O2 Delivery O2 Flow Rate FiO2 05/31/16 08:14 75 05/31/16 08:08 98.3 19 115/57 96 05/29/16 20:19 Room Air 05/29/16 15:39 2 Intake and Output 05/30/16 05/30/16 05/31/16 15:00 23:00 07:00 Intake Total 240 ml 660 ml Balance 240 ml 660 ml Exam Constitutional: alert, oriented Psych: no complaints Cardiovascular: regular rate and rhythm Gastrointestinal: non-tender, soft Neurological: INSTALL TECHNICIAN II-XII intact, nl mental status Results Result Diagram: 05/31/16 0543 05/31/16 0543 Results 24 hrs Laboratory Tests Test 05/30/16 10:40 05/30/16 11:21 05/30/16 17:40 05/30/16 20:21 Albumin (PEP) Pending [id number] Pending [id number] Pending Beta Globulins Pending CA 125 Antigen 6.7 Carcinoembryonic Antigen 2.8 Erythrocyte Sedimentation Rate 18 Ferritin 410.0 H Folate 7.2 Gamma Globulins Pending Haptoglobin Pending Iron Level 86 Lactate Dehydrogenase 289 L Magnesium Level 1.9 Percent Iron Saturation 41 Protein Electrophoresis Interpret Pending Thyroid Stimulating Hormone (TSH) 1.140 Total Iron Binding Capacity 212 L Total Protein (PEP) 6.0 L Vitamin B12 Level 494 Bedside Glucose 220 185 159 Test 05/31/16 05:43 05/31/16 08:20 Alanine Aminotransferase (ALT/SGPT) 22 Albumin 3.5 Albumin/Globulin Ratio 1.06 Alkaline Phosphatase 76 Anion Gap 16 Aspartate Amino Transf (AST/SGOT) 24 Blood Morphology Comment Blood Urea Nitrogen 56 H Calcium Level 9.3 Carbon Dioxide Level 31 Chloride Level 93 L Creatinine 1.41 H Direct Bilirubin 0.00 Globulin 3.30 H Glucose Level 96 Hematocrit 33.1 L Hemoglobin 10.8 L Indirect Bilirubin 0.8 Mean Corpuscular Hemoglobin 21.2 L Mean Corpuscular Hemoglobin Concent 32.5 Mean Corpuscular Volume 65.2 L Mean Platelet Volume 9.2 Platelet Count 250 # Potassium Level 3.9 Red Blood Count 5.08 Red Cell Distribution Width 18.2 H Sodium Level 136 Total Bilirubin 0.8 Total Protein 6.8 White Blood Count 10.9 H Bedside Glucose 116 Medications Medications Current Medications Ondansetron HCl (Zofran Inj) 4 mg Q6H PRN IV NAUSEA AND/OR VOMITING; Start 05/29 at 19:00 Metoclopramide HCl (Reglan) 10 mg Q6H PRN IV NAUSEA AND/OR VOMITING; Start 05/29 at 19:00 Acetaminophen (Tylenol Tab) 650 mg Q6H PRN PO PAIN LEVEL 1-3 OR FEVER Last administered on 05/31/16 08:47; Admin Dose 650 MG; Start 05/29/16 at 19:00 Morphine Sulfate (morphine) 2 mg Q4H PRN IV PAIN LEVEL 7-10; Start 05/29/16 at 19:00 Insulin Glargine (Lantus) 10 unit QAM SC Last administered on 05/31/16 09:01; Admin Dose 10 UNIT; Start 05/30/16 at 09:00 Diltiazem HCl (Cardizem Cd) 120 mg DAILY PO Last administered on 05/31/16 08:49 ; Admin Dose 120 MG; Start 05/30/16 at 09:00 Ergocalciferol (Drisdol) 50,000 unit Q7D PO Last administered on 05/29/16 21:41 ; Admin Dose 50,000 UNIT; Start 05/29/16 at 19:00 Famotidine (Pepcid) 20 mg DAILY PO Last administered on 05/31/16 08:48; Admin Dose 20 MG; Start 05/30/16 at 09:00 Gabapentin (Neurontin) 600 mg QHS PO Last administered on 05/30/16 20:20; Admin Dose 600 MG; Start 05/29/16 at 21:00 Metoprolol Tartrate (Lopressor) 25 mg BID PO Last administered on 05/31/16 08: 48; Admin Dose 25 MG; Start 05/29/16 at 21:00 Ondansetron HCl (Zofran Tab) 4 mg BID PRN PO NAUSEA AND/OR VOMITING; Start 05/29 at 19:00 Miscellaneous Information 1 ea NOTE XX ; Start 05/29/16 at 19:00 Glucose (Glutose) 15 gm Q15M PRN PO DECREASED GLUCOSE; Start 05/29/16 at 19:00 Glucose (Glutose) 22.5 gm Q15M PRN PO DECREASED GLUCOSE; Start 05/29/16 at 19:00 Dextrose (D50w Syringe) 25 ml Q15M PRN IV DECREASED GLUCOSE; Start 05/29/16 at 19:00 Dextrose (D50w Syringe) 50 ml Q15M PRN IV DECREASED GLUCOSE; Start 05/29/16 at 19:00 Glucagon (Glucagen) 1 mg Q15M PRN IM DECREASED GLUCOSE; Start 05/29/16 at 19:00 Glucose (Glutose) 15 gm Q15M PRN BUCCAL DECREASED GLUCOSE; Start 05/29/16 at 19: 00 Apixaban (Eliquis) 2.5 mg BID PO Last administered on 05/31/16 08:48; Admin Dose 2.5 MG; Start 05/30/16 at 09:00 Ceftriaxone Sodium (Rocephin) 1 gm DAILY IM Last administered on 05/30/16 08:45 ; Admin Dose 1 GM; Start 05/30/16 at 09:00 Influenza Virus Vaccine (Fluzone) 0.5 ml ONCE ONCE IM* ; Start 06/01/16 at 09:00 ; Stop 06/01/16 at 09:01 MAINOR STARKEY MD May 31, 2016 10:02
[2016-05-31 10:45] LABS: MONOCYTE # 1.3 10^3/ul (0.3-0.9); NEUTROPHIL # 4.5 10^3/ul (1.6-7.5)
--- NOTE | 2016-05-31 13:15 | CONS ---
Date/Time of Note Date/Time of Note DATE: 05/31/16 TIME: 13:14 Consultation Date/Type/Reason Admit Date/Time May 29, 2016 at 20:39 [facility] Exam/Review of Systems Vital Signs Vitals Vital Signs Date Time Temp Pulse Resp B/P Pulse Ox O2 Delivery O2 Flow Rate FiO2 05/31/16 12:16 69 05/31/16 12:00 98.3 19 110/53 96 05/29/16 20:19 Room Air 05/29/16 15:39 2 Intake and Output 05/30/16 05/30/16 05/31/16 15:00 23:00 07:00 Intake Total 240 ml 660 ml Balance 240 ml 660 ml Results Result Diagram: 05/31/16 0543 05/31/16 0543 Results 24 hrs Laboratory Tests Test 05/30/16 17:40 05/30/16 20:21 05/31/16 05:43 05/31/16 08:20 Bedside Glucose 185 159 116 Alanine Aminotransferase (ALT/SGPT) 22 Albumin 3.5 Albumin/Globulin Ratio 1.06 Alkaline Phosphatase 76 Anion Gap 16 Aspartate Amino Transf (AST/SGOT) 24 Band Neutrophils % 1.0 Blood Morphology Comment Blood Urea Nitrogen 56 H Calcium Level 9.3 Carbon Dioxide Level 31 Chloride Level 93 L Creatinine 1.41 H Direct Bilirubin 0.00 Globulin 3.30 H Glucose Level 96 Hematocrit 33.1 L Hemoglobin 10.8 L Indirect Bilirubin 0.8 Lymphocytes # 5.0 H Lymphocytes % 46.0 Mean Corpuscular Hemoglobin 21.2 L Mean Corpuscular Hemoglobin Concent 32.5 Mean Corpuscular Volume 65.2 L Mean Platelet Volume 9.2 Monocytes # 1.3 H Monocytes % 12.0 H Neutrophils # 4.5 Neutrophils % 41.0 Platelet Count 250 # Potassium Level 3.9 Red Blood Count 5.08 Red Cell Distribution Width 18.2 H Sodium Level 136 Total Bilirubin 0.8 Total Protein 6.8 White Blood Count 10.9 H Test 05/31/16 11:50 Bedside Glucose 251 H Medications Medications Current Medications Ondansetron HCl (Zofran Inj) 4 mg Q6H PRN IV NAUSEA AND/OR VOMITING; Start 05/29 at 19:00 Metoclopramide HCl (Reglan) 10 mg Q6H PRN IV NAUSEA AND/OR VOMITING; Start 05/29 at 19:00 Acetaminophen (Tylenol Tab) 650 mg Q6H PRN PO PAIN LEVEL 1-3 OR FEVER Last administered on 05/31/16 08:47; Admin Dose 650 MG; Start 05/29/16 at 19:00 Morphine Sulfate (morphine) 2 mg Q4H PRN IV PAIN LEVEL 7-10; Start 05/29/16 at 19:00 Insulin Glargine (Lantus) 10 unit QAM SC Last administered on 05/31/16 09:01; Admin Dose 10 UNIT; Start 05/30/16 at 09:00 Diltiazem HCl (Cardizem Cd) 120 mg DAILY PO Last administered on 05/31/16 08:49 ; Admin Dose 120 MG; Start 05/30/16 at 09:00 Ergocalciferol (Drisdol) 50,000 unit Q7D PO Last administered on 05/29/16 21:41 ; Admin Dose 50,000 UNIT; Start 05/29/16 at 19:00 Famotidine (Pepcid) 20 mg DAILY PO Last administered on 05/31/16 08:48; Admin Dose 20 MG; Start 05/30/16 at 09:00 Gabapentin (Neurontin) 600 mg QHS PO Last administered on 05/30/16 20:20; Admin Dose 600 MG; Start 05/29/16 at 21:00 Metoprolol Tartrate (Lopressor) 25 mg BID PO Last administered on 05/31/16 08: 48; Admin Dose 25 MG; Start 05/29/16 at 21:00 Ondansetron HCl (Zofran Tab) 4 mg BID PRN PO NAUSEA AND/OR VOMITING; Start 05/29 at 19:00 Miscellaneous Information 1 ea NOTE XX ; Start 05/29/16 at 19:00 Glucose (Glutose) 15 gm Q15M PRN PO DECREASED GLUCOSE; Start 05/29/16 at 19:00 Glucose (Glutose) 22.5 gm Q15M PRN PO DECREASED GLUCOSE; Start 05/29/16 at 19:00 Dextrose (D50w Syringe) 25 ml Q15M PRN IV DECREASED GLUCOSE; Start 05/29/16 at 19:00 Dextrose (D50w Syringe) 50 ml Q15M PRN IV DECREASED GLUCOSE; Start 05/29/16 at 19:00 Glucagon (Glucagen) 1 mg Q15M PRN IM DECREASED GLUCOSE; Start 05/29/16 at 19:00 Glucose (Glutose) 15 gm Q15M PRN BUCCAL DECREASED GLUCOSE; Start 05/29/16 at 19: 00 Apixaban (Eliquis) 2.5 mg BID PO Last administered on 05/31/16 08:48; Admin Dose 2.5 MG; Start 05/30/16 at 09:00 Ceftriaxone Sodium (Rocephin) 1 gm DAILY IM Last administered on 05/31/16 12:12 ; Admin Dose 1 GM; Start 05/30/16 at 09:00 Influenza Virus Vaccine (Fluzone) 0.5 ml ONCE ONCE IM* ; Start 06/01/16 at 09:00 ; Stop 06/01/16 at 09:01 LUDIN LAY MD May 31, 2016 13:15
--- NOTE | 2016-05-31 15:14 | PDOCDIS ---
Discharge Instructions CONDITION Patient Condition: Stable HOME CARE INSTRUCTIONS: Special Diet: Diabetic ACTIVITY: Activity Restrictions: Slowly Increase Activity FOLLOW UP/APPOINTMENTS Appointments Follow-up with primary care Doctor OTHER ORDERS: Other Orders: Call 911 or go to the nearest ER if you develop chest pain, shortness of breath , intractable nausea, vomiting, palpitations YASH DEJESUS MD May 31, 2016 15:14
[2016-05-31] MEDS ORDERED: CIPR500T4 PO (15:17)
[2016-05-31 22:44] LABS: ALBUMIN 3.3 g/dL (3.8-4.8)
[2016-06-01] MEDS ORDERED: INFLUENZA VIRUS VACCINE 0.5 ML SYG IM* ONE (09:00)
== END 2016-05-31 16:53 | disposition home or self-care (01) | DRG 683 ==
LOC: E/R 15:22 → TEL 20:39
PROVIDERS: ADMIT Internal Medicine; ATTEND Internal Medicine
DX: N17.9 Acute kidney failure, unspecified (principal); E87.1 Hypo-osmolality and hyponatremia; E87.5 Hyperkalemia; N39.0 Urinary tract infection, site not specified; D64.9 Anemia, unspecified; E11.9 Type 2 diabetes mellitus without complications; E86.0 Dehydration; I48.91 Unspecified atrial fibrillation; I25.2 Old myocardial infarction; R11.2 Nausea with vomiting, unspecified; Z87.11 Personal history of peptic ulcer disease
CPT/HCPCS: 36415; 71010; 80053; 80162; 81001; 81003; 82378; 82550; 82553; 82607; 82728; 82746; 82962; 83010; 83540; 83615; 83735; 83880; 84132; 84155; 84165; 84443; 84484; 85025; 85610; 85651; 85730; 86304; 87086; 87400; 93005; 96374; 96375; J0610; J0696; J1815; J7030; J7070